=== PATIENT | female | born 1965 | race Two or more races ===

== ENCOUNTER 2017-09-04 06:33 | Day surgery (SDC) | payer MEDICAID ==
[2017-09-04] MEDS ORDERED: LR 1,000 ML IV ONE (07:01)
[2017-09-04] MEDS ORDERED: LIDOCAINE 1% 2 ML INJ ID PRN (07:01)
[2017-09-04] MEDS ORDERED: BUPIVACAINE/EPI 0.5% 30 ML SDV ONE (07:45)
[2017-09-04] MEDS ORDERED: CHLORHEXIDINE GLUCONATE 15 ML UDL ONE (07:46)
[2017-09-04] MEDS ORDERED: OXYMETAZOLINE 30 ML NASAL SPRAY ONE (07:46)
[2017-09-04] MEDS ORDERED: MIDAZOLAM 2 MG/2 ML VIAL IVP ONE (08:04)
--- NOTE | 2017-09-04 08:04 | PDANEPAE ---
ANE Past Medical History - Cardiovascular History Hx Hypertension: No Hx Arrhythmias: No Hx Chest Pain: No Hx Coronary Artery / Peripheral Vascular Disease: No Hx CHF / Valvular Disease: No Hx Palpitations: No - Pulmonary History Hx COPD: No Hx Asthma/Reactive Airway Disease: No Hx Recent Upper Respiratory Infection: No Hx Oxygen in Use at Home: No Hx Sleep Apnea: No Sleep Apnea Screening Result - Last Documented: Negative - Neurologic History Hx Cerebrovascular Accident: No Hx Seizures: No Hx Dementia: No Neurologic History Comment: spinal fractures cause chronic pain - Endocrine History Hx Diabetes: No - Renal History Hx Renal Disorders: No - Liver History Hx Hepatic Disorders: No - Neurological & Psychiatric Hx Hx Neurological and Psychiatric Disorders: No - Cancer History Hx Cancer: No - Congenital Disorder History Hx Congenital Disorders: No - GI History Hx Gastrointestinal Disorders: No - Other Health History Other Health History: wears reading glasses. upper partial plate - Chronic Pain History Chronic Pain: Yes (chronic back pain) - Surgical History Prior Surgeries: none ANE Review of Systems Review of Systems: - Exercise capacity METS (RN): 4 METS ANE Patient History - Allergies Allergies/Adverse Reactions: No Known Allergies Allergy (Verified 09/04/17 07:16) - Home Medications Home Medications: Aleve 08/31/17 [Last Taken 08/31/17] Herbals/Supplements -Info Only 08/31/17 [Last Taken 09/03/17 08:00] Oxycodone HCl 08/31/17 [Last Taken 09/03/17 16:00] Seroquel 08/31/17 [Last Taken 09/03/17 22:30] morphINE 08/31/17 [Last Taken 09/03/17 18:00] - NPO status NPO Since - Liquids (Date): 09/03/17 NPO Since - Liquids (Time): 20:00 NPO Since - Solids (Date): 09/03/17 NPO Since - Solids (Time): 20:00 - Smoking Hx Smoking Status: Former smoker - Family Anes Hx Family Hx Anesthesia Complications: none ANE Labs/Vital Signs - Vital Signs Blood Pressure: 146/89 Heart Rate: 70 Respiratory Rate: 16 O2 Sat (%): 94 Height: 154.94 cm Weight: 46.72 kg ANE Physical Exam - Airway Neck exam: FROM Mallampati Score: Class 3 Mouth exam: poor dentition - Pulmonary Pulmonary: no respiratory distress - Cardiovascular Cardiovascular: regular rate and rhythym - ASA Status ASA Status: III ANE Anesthesia Plan Anesthesia Plan: general endotracheal anesthesia
--- NOTE | 2017-09-04 08:07 | PDHPUP ---
History & Physical Update H&P update statement: This history and physical update is based on an assessment of the patient which was completed after admission or registration (within 24 hours), but prior to the surgery/procedure. H&P update: H&P reviewed & patient examined, no change in patient's condition since H&P completed
[2017-09-04] MEDS ORDERED: fentaNYL 250 MCG/5 ML INJ ONE (08:11)
[2017-09-04] MEDS ORDERED: PROPOFOL 200 MG/20 ML VIAL ONE (08:12)
[2017-09-04] MEDS ORDERED: GLYCOPYRROLATE 0.2 MG/1 ML VIAL ONE ×2 (09:13)
[2017-09-04] MEDS ORDERED: NEOSTIGMINE METHYLSULFATE 5 MG/5 ML SYR ONE (09:13)
--- NOTE | 2017-09-04 09:27 | POSTOPPROG ---
Post Op Note Date of Operation: 09/04/17 Surgeon: Dc Lunsford Anesthesiologist: Amalia Anesthesia: GET(General Endotracheal) Pre-op Diagnosis: L tongue SCC Post-op Diagnosis: L tongue SCC Indication: L tongue SCC Procedure: Excision L tongue SCC Findings: L tongue SCC Inf/Abcess present in the surg proc area at time of surgery?: Yes Depth: Deep Incisional (Fascial) EBL: Minimal Specimen(s): Multiple tongue
[2017-09-04] MEDS ORDERED: ALBUTEROL 3 ML DEYVIAL IH PRN (09:33)
[2017-09-04] MEDS ORDERED: oxyCODONE IR 5 MG TAB PO PRN (09:33)
[2017-09-04] MEDS ORDERED: HYDROmorphONE/DILAUDID 1 MG/ML INJ IVP PRN (09:33)
[2017-09-04] MEDS ORDERED: ACETAMINOPHEN 500 MG TAB PO PRN (09:33)
[2017-09-04] MEDS ORDERED: HYDROCODONE/APAP 5/325 TAB PO PRN (09:33)
[2017-09-04] MEDS ORDERED: ONDANSETRON 4 MG/2 ML VIAL IVP PRN (09:33)
[2017-09-04] MEDS ORDERED: NALOXONE HCL 0.4 MG/ML INJ IVP PRN (09:33)
--- NOTE | 2017-09-04 09:34 | POSTANESTH ---
Post Anesthetic Evaluation Cardiovascular Status: Similar to Pre-Op Cond Respiratory Status: Similar to Pre-op Cond. Level of Consciousness/Mental Status: Mildly Sleepy, Arousable Pain Control: Adequate, Prn Tx Ordered Nausea/Vomiting Control: Adequate, Prn Tx Ordered Complications Possibly Related to Anesthesia: None Noted
[2017-09-04] MEDS ORDERED: fentaNYL 100 MCG/2 ML INJ ONE (09:50)
[2017-09-04] MEDS: fentaNYL 100 MCG/2 ML INJ IVP PRN ×2 (09:52→10:03)
[2017-09-04 10:25] VITALS: BP 135/79
--- NOTE | 2017-09-11 11:33 | GOP ---
[f rep st] OPERATIVE REPORT DATE OF OPERATION: 09/04/2017 SURGEON: Dc Lunsford MD ANESTHESIA: General. 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 POSTOPERATIVE DIAGNOSIS: Left lateral tongue squamous cell carcinoma. PROCEDURE PERFORMED: Partial glossectomy left lateral tongue squamous cell carcinoma. FINDINGS: SPECIMENS: Left lateral and ventral tongue. ESTIMATED BLOOD LOSS: Minimal. INDICATIONS: The patient was seen in the outpatient clinic and found to have a large left lateral tongue mass that extended somewhat onto the ventral tongue. Given these findings, she was determined to be an appropriate candidate for the above-stated procedures. The risks, benefits, and alternatives to the procedures were explained at length to the patient who stated she understood and agreed. DESCRIPTION OF PROCEDURE: The patient was brought to the operating room by Anesthesiology and placed on the operating table. Once the appropriate level of anesthesia was achieved, the patient was prepped and draped in the usual fashion. A bite block was placed at the right molars. A penetrating towel clips was placed over the anterior central tongue and used to retract the tongue. 0.75% bupivacaine with 1:100,000 epinephrine was injected into the right lateral aspect of the tongue. There had been noted some ulceration associated with the lesion but just ventral of the rim lesion. A small portion of this was biopsied and sent off for frozen section. While we were awaiting frozen section, the main lesion was measured and marked with a 0.5cm and 1 cm margin. A Bovie electrocautery was then used to create an ellipsoid incisional biopsy of the dorsolateral aspect of the tongue, maintaining at least 5 mm of normal appearing tissue as a margin. This dissection did not include the mildly ulcerated portion of the ventral tongue. Dissection continued deeply until normal appearing lingual muscle was identified. Dissection continued until the entire piece was elevated. This was sent for permanent section. At the completion of this, the results of the frozen section showed that the associated site of ulceration was also squamous cell carcinoma. The incisional biopsy site was enlarged until 5 mm of normal appearing tissue to the ventral medial aspects of this. The initial section was an ovoid 2.5 cm piece. The next site was 3 cm in length. Lingual muscle at the deep margin was taken for frozen margins. Following the frozen section of the deep biopsy, the site was inspected for bleeding and hemostasis was achieved using Bovie electrocautery. The deep/radial margin was found to be clear of squamous cell carcinoma. After this, 4-0 Vicryl suture was then used in an interrupted fashion to reapproximate the mucosal membrane at the incision site. The closure was complete and showed no significant bleeding. The patient tolerated the procedure well, and was extubated in the operating room prior to being transferred in good condition to the postanesthesia care unit. /[id number]/MODL MTDD
== END 2017-09-04 10:50 | disposition home or self-care (01) ==
LOC: FSGY 06:33
PROVIDERS: ATTEND Otolaryngology
PROC: 0CB70ZZ Excision of Tongue, Open Approach (ICD-10-PCS; principal; 2017-09-04 08:15)
DX: C02.9 Malignant neoplasm of tongue, unspecified (principal); G89.29 Other chronic pain
CPT/HCPCS: 96374; G0378; J1100; J1170; J1885; J2250; J2270; J2704; J2710; J3010